=== PATIENT | female | born 1965 | race Caucasian/White ===

== ENCOUNTER 2019-04-18 07:43 | Day surgery (SDC) | payer MEDICAID ==
[~2019-04-18] VITALS: Ht 167.6 cm; Wt 65.8 kg
[~2019-04-18 07:43] MED LIST: OMEP20CA10 PO
[2019-04-18] MEDS ORDERED: LACTATED RINGERS 1,000 ML IV SCH (08:25)
[2019-04-18] MEDS ORDERED: TRIAMCINOLONE ACETONIDE 40MG/ML 1ML VIAL ONE (08:58)
[2019-04-18] MEDS ORDERED: MIDAZOLAM HCL 2 MG/2 ML VIAL ONE ×2 (10:08→10:13)
[2019-04-18] MEDS ORDERED: PROPOFOL 200MG/20ML VIAL IV ONE (10:09)
[2019-04-18] MEDS ORDERED: LIDOCAINE HCL 1% 20ML VIAL (Pyxis) INJ ONE (10:12)
[2019-04-18] MEDS ORDERED: CIPROFLOXACIN 0.3% OPHTH SOLN 2.5ML ONE (16:09)
[2019-04-18] MEDS ORDERED: BALANCED SALT IRRIG SOLN 15ML ONE (16:09)
[2019-04-18] MEDS ORDERED: LIDOCAINE HCL 2%/EPINEPHRINE 1:100,000 20 ML VIAL INFIL ONE (16:09)
[2019-04-18] MEDS ORDERED: BUPIVACAINE HCL/PF 0.75% (7.5MG/ML) 10ML ONE (16:09)
[2019-04-18] MEDS ORDERED: PREDNISOLONE ACETATE 1% OPHTH DROPS 1ML ONE (16:09)
[2019-04-18] MEDS ORDERED: TETRACAINE 0.5% OPHTH DROPS 4ML ONE (16:09)
[2019-04-18] MEDS ORDERED: NEO/POLYMYX B SULF/DEXAMETH OPHTH OINT 3.5GM ONE (16:09)
== END 2019-04-18 12:00 | disposition home or self-care (01) ==
LOC: OR 07:43
PROVIDERS: ATTEND Ophthalmology
DX: H11.001 Unspecified pterygium of right eye (principal); R73.03 Prediabetes; K21.9 Gastro-esophageal reflux disease without esophagitis; Z79.899 Other long term (current) drug therapy
CPT/HCPCS: 65426; 82962; J2250; J2704; J3301; J3490

== ENCOUNTER 2023-10-29 10:04 | Emergency (ER) | payer MEDICARE, MEDICAID ==
[~2023-10-29] VITALS: Ht 167.6 cm; Wt 68.0 kg
[~2023-10-29 10:04] MED LIST changes: -OMEP20CA10 PO; +OMEP20CA14 PO
[2023-10-29 10:14] VITALS: TEMP 98.3; O2SAT 98
[2023-10-29 10:47] LABS: EOSINOPHILS % 6.1 % (0.0-5.0); HEMATOCRIT. 45.4 % (36.0-48.0); HEMOGLOBIN. 15.3 g/dL (12.0-16.0); LYMPHOCYTES % 31.7 % (20.0-50.0); MEAN CORPUSCULAR HEMOGLOBIN 29.1 pg (28.0-32.0); MEAN CORPUSCULAR HGB CONC 33.7 g/dL (31.0-37.0); MEAN CORPUSCULAR VOLUME 86.2 fL (81.0-99.0); MEAN PLATELET VOLUME 7.2 fl (7.4-10.4); MONOCYTES % 8.9 % (2.0-8.0); NEUTROPHILS % 52.3 % (40.0-76.0); PLATELET 264 x1000/uL (130-400); RED BLOOD CELL COUNT 5.27 mill/uL (4.2-5.4); RED CELL DISTRIBUTION WIDTH 15.8 % (11.6-14.6); WHITE BLOOD COUNT 7.3 x1000/uL (4.5-11.0)
[2023-10-29 11:00] LABS: ALANINE AMINOTRANSFERASE 14 IU/L (10-49); ALBUMIN 4.7 g/dL (3.2-4.8); ASPARTATE AMINOTRANSFERASE 18 IU/L (<34); BILIRUBIN TOTAL 0.5 mg/dL (0.1-1.0); CALCIUM 9.4 mg/dL (8.7-10.4); CARBON DIOXIDE 24 mEq/L (21-32); CHLORIDE 108 mEq/L (98-107); CREATININE 0.6 mg/dL (0.6-1.0); GLUCOSE 116 mg/dL (70-105); POTASSIUM 4.2 mEq/L (3.5-5.1); PROTEIN TOTAL 6.8 g/dL (6.0-8.3); SODIUM 140 mEq/L (136-145); UREA NITROGEN BLOOD 11 mg/dL (9-23)
[2023-10-29 12:03] LABS: CLARITY URINE CLEAR (CLEAR); COLOR URINE YELLOW (YELLOW); GLUCOSE URINE 3+ (NEGATIVE); KETONES URINE NEGATIVE (NEGATIVE); PH URINE 5.5 (4.5-8.0); PROTEIN URINE NEGATIVE (NEGATIVE); SPECIFIC GRAVITY URINE 1.005 (1.005-1.030)
[2023-10-29 12:04] LABS: LEUKOCYTE ESTERASE URINE NEGATIVE (NEGATIVE); NITRITE URINE NEGATIVE (NEGATIVE); OCCULT BLOOD URINE TRACE (NEGATIVE); UROBILINOGEN URINE 0.2 E.U./dL (0.2-1.0)
[2023-10-29 12:16] LABS: BACTERIA URINE FEW; RBC URINE 0-2 /hpf (0-2); SQUAMOUS EPITHELIAL CELL URINE FEW /lpf (RARE/1+); YEAST URINE NONE SEEN
[2023-10-29] MEDS ORDERED: KETOROLAC 60MG/2ML VIAL IM ONE (13:00)
[2023-10-29] MEDS ORDERED: MORPHINE SULFATE 10 MG/ML CPJ IM ONE (13:00)
[2023-10-29] MEDS ORDERED: FAMOTIDINE 20MG TABLET PO SCH (14:15)
[2023-10-29] MEDS ORDERED: MAGNESIUM/ALUMINUM HYDROXIDE/SIMETHICONE 30ML UDC PO ONE (14:15)
[2023-10-29] MEDS ORDERED: LACT1CAP78 MT (14:41)
[2023-10-29] MEDS ORDERED: MAG-55 MT (14:41)
[2023-10-29] MEDS ORDERED: FAMO40TA70 MT (14:41)
[2023-10-29] MEDS ORDERED: POLY119P2 MT (14:41)
[2023-10-29 14:54] VITALS: BP 122/75; PULSE 68; RESP 20
[2023-10-29] MEDS ORDERED: KETOROLAC 60MG/2ML VIAL IM NR (15:00)
[2023-10-29] MEDS ORDERED: MORPHINE SULFATE 10 MG/ML CPJ IM NR (15:00)
== END 2023-10-29 15:06 | disposition home or self-care (01) ==
LOC: ER 10:04
DX: K52.9 Noninfective gastroenteritis and colitis, unspecified (principal); K59.00 Constipation, unspecified; E11.9 Type 2 diabetes mellitus without complications; I10 Essential (primary) hypertension; Z79.899 Other long term (current) drug therapy
CPT/HCPCS: 99285; 74176; 76830; 76856; 80053; 81003; 83690; 85025; 36415; 96372; J1885; J2270

== ENCOUNTER 2025-02-03 07:52 | Emergency (ER) | payer MEDICARE, MEDICAID ==
[~2025-02-03] VITALS: Ht 157.5 cm; Wt 63.0 kg
[~2025-02-03 07:52] MED LIST changes: +FAMO40TA70 MT; +LACT1CAP78 MT; +MAG-55 MT; +POLY119P2 MT
[2025-02-03 08:15] VITALS: O2SAT 99
[2025-02-03] MEDS: IBUPROFEN 400MG TABLET PO ONE (09:08)
[2025-02-03] MEDS ORDERED: IBUP-2028 MT (10:02)
[2025-02-03 10:04] VITALS: BP 144/61; PULSE 68; RESP 18; TEMP 37.1; O2SAT 98
[2025-02-03 10:22] LABS: INFLUENZA TYPE A Presumptive Negative (Pres. Neg.); INFLUENZA TYPE B Presumptive Negative (Pres. Neg.)
== END 2025-02-03 10:13 | disposition home or self-care (01) ==
LOC: ER 07:52
DX: J02.9 Acute pharyngitis, unspecified (principal); I10 Essential (primary) hypertension; E11.9 Type 2 diabetes mellitus without complications; M19.90 Unspecified osteoarthritis, unspecified site; Z90.49 Acquired absence of other specified parts of digestive tract; Z79.899 Other long term (current) drug therapy; Z98.890 Other specified postprocedural states
CPT/HCPCS: 87070; 87430; 87804; 99283